=== PATIENT | male | born 1970 | race Caucasian/White ===

== ENCOUNTER 2017-04-13 18:49 | Emergency (ER) | payer OTHER ==
[~2017-04-13] VITALS: Ht 172.7 cm; Wt 61.4 kg
[2017-04-13 18:52] VITALS: BP 132/76; PULSE 71; RESP 16; O2SAT 100
--- NOTE | 2017-04-13 19:27 | ED.REPORT ---
HPI-Extremity Problem Upper Date of Service Apr 13, 2017 ED Provider: Doc,Ed MD History of Present Illness: cutting bread and cut left index finger with serrated knife. last tdap 7 years ago, Adonis Cook is primary care. normally healthy 5/10, right hand dominant Nursing Notes Stated Complaint: LAC TO LEFT INDEX FINGER Chief Complaint: Laceration Nursing Notes Reviewed: Yes Allergies: Coded Allergies: Contrast Media (Verified Allergy, Intermediate, SWELLING, 04/13/17) Sulfa (Sulfonamide Antibiotics) (Verified Allergy, Intermediate, HIVES, 08/18) General Time Seen by MD: 19:26 Chief Complaint Finger injury left 2 Hx Obtained From: Patient Onset Occurred: Just prior to arrival Past Medical History Past Medical History Denies: Asthma Past Surgical History hernia Smoking History Never Smoker Social History Alcohol Use: 1-3 per week Drug Use: Denies drug use Other Social History: Occupation lives with , 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 Status Independent Review of Systems Basic Review of Systems Eyes: Vision NL, No discharge Psychiatric: Normal thought content Physical Exam Initial Vital Signs Vital Signs (First) Date Time Temp Pulse Resp B/P Pulse Ox O2 Delivery O2 Flow Rate FiO2 04/13/17 18:52 36.8 71 16 132/76 100 Room Air Initial VS: Reviewed, Vital signs normal General/Constitutional: Well-developed, Well-nourished Head / Eyes: Atraumatic, Normocephalic, PERRL ENT: Mucous membranes moist, Conjunctiva normal, No scleral icterus Neck: Supple, Non-tender, Full range of motion Respiratory: Breath sounds normal, Clear to auscultation, No respiratory distress Cardiovascular: Regular rate & rhythm, Heart sounds normal, Intact distal pulses Abdomen / GI: Soft, Non-tender, No guarding, No rebound, No distention Back: No CVA tenderness Lymphatic: No lymphadenopathy Lower Extremities: Vascular intact, Neuro intact, No swelling, No tenderness Skin: Warm, Dry, No cyanosis Neurologic: Alert, Oriented, Nonfocal Psychiatric: Mood/affect normal, Behavior normal, Normal thought content General/Constitutional: Awake, Alert, No acute distress, Well appearing, Well developed, Well hydrated, Well nourished, Cooperative, Not toxic appearing Respiratory / Chest: Atraumatic, Breath sounds NL, Breath sounds = bilat, No respiratory distress, No rales, No rhonchi, No wheezing Cardiovascular: Heart rate NL, Regular rhythm, Heart sounds NL, No gallop, No murmurs, No rubs Upper Extremity / MS: Atraumatic, Inspection NL, Full range of motion left index finger has 1 cm laceration on lateral finger. Range of motion intact. cap refill less than 2 sec. sensation intact distally ENT: Atraumatic, Airway patent, Mucous membranes moist, Pharynx NL Procedures Laceration Management Time: 19:30 Procedure Performed by: Allied health pract Consent / Setup / Site Prep: Informed consent provided, Consent from patient , Hand hygiene observed, Stand sterile technique Location of Wound: left index finger Wound Length: 1 cm Local Anesthesia: Lidocaine 1%, 4cc, 27g needle Digital Block: Yes Digit Involved: Index finger left Wound Preparation: Normal saline Irrigation: Copious Repair Skin: ___ O (5), Nylon # Sutures - Skin: 4 Closure Layers: 1 Suture Technique: Simple Post-Procedure / Complications: Antibiotic oint applied, Dressing applied, No complications, Condition improved, Tolerated procedure well, Patient stable Re-Eval/Medical Decision Med Decision/Clinical Course 46 year old male presents for 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 Patient not sure about last tdap. Finger was cut with a bread knife. No sign of fracture or compartment syndrome. Discharge & Departure Impression: Primary Impression: Laceration Disposition: Home Patient Instructions: Finger Laceration (ED), Laceration (ED) Additional Instructions: You have been updated on your tdap today. Keep the wound dry for 24 hours. Can get it briefly wet after that. Sutures out in 10 days. Can use ibuprofen 800 mg up to 3 times a day as needed for any discomfort. Referrals: Adonis Cook MD (PCP) EDSupervising Provider for APC: Jacquelin Connors MD copies to: Adonis Cook MD, Sue ARNP Apr 13, 2017 19:27
[2017-04-13] MEDS ORDERED: TdaP Vaccine 0.5 mL Inj IM ONE (19:50)
== END 2017-04-13 20:00 | disposition home or self-care (01) ==
LOC: SED 18:49
DX: S61.211A Laceration without foreign body of left index finger without damage to nail, initial encounter (principal); W26.0XXA Contact with knife, initial encounter; Y93.89 Activity, other specified; Y92.89 Other specified places as the place of occurrence of the external cause; Y99.8 Other external cause status; Z88.2 Allergy status to sulfonamides; Z91.041 Radiographic dye allergy status